=== PATIENT | male | born 1970 | race Caucasian/White ===

== ENCOUNTER 2019-06-08 11:32 | Emergency (ER) | payer SELFPAY ==
[~2019-06-08] VITALS: Ht 185.4 cm; Wt 90.7 kg
[2019-06-08 11:37] VITALS: BP_SYST 130
--- NOTE | 2019-06-08 11:44 | NUR ---
CHEL Shearer at bedside examining patient. Addendum: 06/08/19 at 1848 by [email or web address] wrong entry of time. [id number].
--- NOTE | 2019-06-08 12:04 | NUR ---
Placed in room 2. Placed on telemetry monitor, blood pressure machine and pulse oximeter. To gown for exam. Side rails up. Report given to Chantell GUDINO.
--- NOTE | 2019-06-08 12:06 | NUR ---
Pt brought by self, A&O x4 , pt presents to ER with chest tighness and L arm pain starting today, pt given aspirin on route, respirations even and unlabored, cap refill <3, VSS, no N/V noted at this time, will continue to monitor.
[2019-06-08 12:13] LABS: BASOPHILS # (AUTO) 0.1 K/uL (0.0-0.2); BASOPHILS % (AUTO) 0.4 % (0.0-2.0); EOSINOPHILS # (AUTO) 0.1 K/uL (0.0-0.4); EOSINOPHILS % (AUTO) 0.7 % (0.0-4.0); HEMATOCRIT 50.7 % (36-54); HEMOGLOBIN 17.2 g/dL (14.0-18.0); LYMPHOCYTES # (AUTO) 2.2 K/uL (1.0-5.5); LYMPHOCYTES % (AUTO) 15.4 % (20.5-51.5); MEAN CORPUSCULAR HEMOGLOBIN 31 pg (27-31); MEAN CORPUSCULAR HGB CONC 34 % (32-36); MEAN CORPUSCULAR VOLUME 92 fL (79.0-98.0); MONOCYTES # (AUTO) 0.8 K/uL (0.0-1.0); MONOCYTES % (AUTO) 5.8 % (1.7-9.3); NEUTROPHILS % (AUTO) 77.7 % (40.0-70.0); PLATELET COUNT (AUTO) 343 K/uL (130-430); RED BLOOD CELL COUNT(AUTO) 5.52 MIL/uL (4.2-6.2); RED CELL DISTRIBUTION WIDTH 13.6 % (9.0-15.0); WHITE BLOOD COUNT (AUTO) 14.1 K/uL (4.8-10.8)
[2019-06-08 12:25] LABS: INR 1.1 (0.80-1.20); PROTHROMBIN TIME 10.7 SECS (9.5-12.5)
[2019-06-08 13:03] LABS: CALCIUM 9.7 mg/dL (8.4-11.0); CREATININE 1.31 mg/dL (0.55-1.30); POTASSIUM 4.1 mmol/L (3.5-5.1)
[2019-06-08 13:08] LABS: ALBUMIN 4.1 g/dL (3.4-4.8); TOTAL BILIRUBIN 0.6 mg/dL (0.0-1.0)
[2019-06-08 13:30] VITALS: BP_SYST 130
--- NOTE | 2019-06-08 13:30 | NUR ---
Patient given written and verbal discharge instructions and verbalizes understanding. ER MD discussed with patient the results and treatment provided. Patient in stable condition. ID arm band removed. Opportunity for questions provided and answered. Medication side effect fact sheet provided. cleared to book.
== END 2019-06-08 13:30 | disposition home or self-care (01) ==
LOC: SED 11:32
DX: R07.89 Other chest pain (principal); Z88.0 Allergy status to penicillin; F17.200 Nicotine dependence, unspecified, uncomplicated; Z71.6 Tobacco abuse counseling
CPT/HCPCS: 36415; 71045; 80053; 84484; 85025; 85610-TC; 85730-TC; 93005; 99284

== ENCOUNTER 2022-03-14 22:48 | Inpatient (IN) | payer MEDICAID ==
[~2022-03-14] VITALS: Ht 154.9 cm; Wt 90.5 kg
--- NOTE | 2022-03-14 23:11 | NUR ---
Placed in room 5 . Placed on director of cardiac rehabilitation, blood pressure machine and pulse oximeter. To gown for exam. Side rails up. Report given to MARGIE GUDINO.
[2022-03-14 23:14] VITALS: BP_SYST 148
[2022-03-14] MEDS ORDERED: ALBUTEROL SULFATE 0.083% 2.5 MG/3 ML VIAL.NEB INH ONE (23:30)
[2022-03-14] MEDS ORDERED: IPRATROPIUM BROM 0.5 MG/2.5 ML VIAL.NEB (ATROVENT) INH ONE (23:30)
[2022-03-14] MEDS ORDERED: DEXAMETHASONE SOD PHOSPHATE 10 MG/ML VIAL IVP ONE (23:30)
[2022-03-15] VITALS (7 sets, daily range): BP systolic 112–139
[2022-03-15 00:28] LABS: BASOPHILS # (AUTO) 0.1 K/uL (0.0-0.2); BASOPHILS % (AUTO) 0.7 % (0.0-2.0); HEMOGLOBIN 15.6 g/dL (14.0-18.0); LYMPHOCYTES # (AUTO) 3.4 K/uL (1.0-5.5); RED CELL DISTRIBUTION WIDTH 13.6 % (9.0-15.0)
[2022-03-15 00:39] LABS: EOSINOPHILS # (AUTO) 0.4 K/uL (0.0-0.4); EOSINOPHILS % (AUTO) 2.8 % (0.0-4.0); HEMATOCRIT 44.8 % (36-54); LYMPHOCYTES % (AUTO) 25.4 % (20.5-51.5); MEAN CORPUSCULAR HEMOGLOBIN 31 pg (27-31); MEAN CORPUSCULAR HGB CONC 35 % (32-36); MEAN CORPUSCULAR VOLUME 88 fL (79.0-98.0); MONOCYTES # (AUTO) 1.3 K/uL (0.0-1.0); MONOCYTES % (AUTO) 9.4 % (1.7-9.3); NEUTROPHILS # (AUTO) 8.3 K/uL (1.8-7.7); NEUTROPHILS % (AUTO) 61.7 % (40.0-70.0); PLATELET COUNT (AUTO) 382 K/uL (130-430); RED BLOOD CELL COUNT(AUTO) 5.12 MIL/uL (4.2-6.2); WHITE BLOOD COUNT (AUTO) 13.5 K/uL (4.8-10.8)
--- NOTE | 2022-03-15 00:43 | NUR ---
Pt C/O SOB Breathing treatment given by RT Pt AOX4 VSS Able to make needs known Will continue to monitor
[2022-03-15 02:02] LABS: ANION GAP 11 (5-15); CALCIUM 9.5 mg/dL (8.4-11.0); CHLORIDE 101 mmol/L (98-107); CREATININE 1.29 mg/dL (0.55-1.30); GLUCOSE 104 mg/dL (70-99); POTASSIUM 4.1 mmol/L (3.5-5.1); SODIUM SERUM 138 mmol/L (136-145); UREA NITROGEN, BLOOD 18 mg/dL (8-21)
[2022-03-15 02:07] LABS: GFR AFRICAN AMERICAN 75 mL/min (>90)
[2022-03-15 02:11] LABS: ALANINE AMINOTRANSFERASE 47 U/L (12-78); ALBUMIN 3.7 g/dL (3.4-4.8); ASPARTATE AMINOTRANSFERASE 24 U/L (10-37); TOTAL BILIRUBIN 0.5 mg/dL (0.0-1.0)
--- NOTE | 2022-03-15 03:22 | NUR ---
Admit bed requested Patient will be admitted to care of Admitted to unit. Telemetry Diagnosis COPD, Respiratory failure Inpatient (Yes or No) Yes Observation (Yes or No) N Orientation concerns or request close to nursing station (Yes or No) N Covid Status Neg On vent or bipap No Isolation requirements No Needs a sitter No From Home (Yes or if No enter name of facility) home Requires Dialysis (Yes or No) No Med Rec Completed (Yes of No) Yes
--- NOTE | 2022-03-15 05:45 | NUR ---
Patient resting comfortably in bed Pt AOX4 VSS Able to make needs known Will continue to monitor
--- NOTE | 2022-03-15 06:05 | NUR ---
ADMISSION NOTE Received patient from ER via gurney. Patient admitted with diagnosis of COPD, RESPIRATORY FAILURE. Patient is awake, alert, oriented X4. Patient oriented to hospital room, call light, toileting, pain management and safety-teach back done. Patient informed that their room number is 109A Personal belongings checked and Belongings List documented. Call light within reach.
--- NOTE | 2022-03-15 06:13 | NUR ---
Patient will be admitted to [id number]. Belongings list completed. Complete and up to date summary report printed. SBAR report to be given to Maria G RN at bedside with opportunity for questions.
--- NOTE | 2022-03-15 06:15 | NUR ---
RECEIVED REPORT ON PATIENT FROM CHRISTINA EDUARDO RN, ASSUMED CARE, AND STARTED ASSESSMENT.
--- NOTE | 2022-03-15 06:17 | NUR ---
CONSULTATION PAGED/CALLED Reason for Consultation: COPD Person Who was Notified: ELIZABET Consulting Physician: YANELY Circuits Engineer Specialty: Ordering Physician: MILLER
--- NOTE | 2022-03-15 07:19 | NUR ---
REPORT GIVEN TO TERESE MILLER, AND CARE WAS TURNED OVER.
[2022-03-15] MEDS: IPRATROPIUM/ALBUTEROL SULFATE 3 ML AMPUL.NEB (DUONEB) INH SCH ×4 (09:15→20:31)
[2022-03-15] MEDS ORDERED: ENOXAPARIN SODIUM 40 MG/0.4 ML SYRINGE SUBCUT ONE (09:30)
[2022-03-15] MEDS ORDERED: predniSONE 20 MG TABLET PO ONE (09:30)
--- NOTE | 2022-03-15 19:01 | NUR ---
all needs mets. no s/s of distress, on 2 liters nasal cannula saturation good. no other concerned noted.
--- NOTE | 2022-03-15 19:15 | NUR ---
RECEIVED REPORT ON PATIENT FROM TERESE MENDOZA, ASSUMED CARE AND STARTED ASSESSMENT.
[2022-03-16] MEDS: IPRATROPIUM/ALBUTEROL SULFATE 3 ML AMPUL.NEB (DUONEB) INH SCH ×3 (07:12→15:27)
[2022-03-16 08:00] VITALS: BP_SYST 130
--- NOTE | 2022-03-16 08:00 | NUR ---
Initial notes sleepy, on O2 2L saturating at 97%, per patient he feels weak and have short of breath upon ambulating to the bathroom. Denies any pain. Call light within reach. Enc to call for help as needed.
[2022-03-16] MEDS ORDERED: ENOXAPARIN SODIUM 40 MG/0.4 ML SYRINGE SUBCUT SCH (09:00)
[2022-03-16] MEDS ORDERED: predniSONE 20 MG TABLET PO SCH (09:00)
[2022-03-16 09:03] LABS: ALBUMIN 3.4 g/dL (3.4-4.8); CALCIUM 9.2 mg/dL (8.4-11.0); CREATININE 1.2 mg/dL (0.55-1.30); POTASSIUM 4.2 mmol/L (3.5-5.1); TOTAL BILIRUBIN 0.2 mg/dL (0.0-1.0)
[2022-03-16 09:05] LABS: BASOPHILS # (AUTO) 0.1 K/uL (0.0-0.2); BASOPHILS % (AUTO) 0.3 % (0.0-2.0); EOSINOPHILS % (AUTO) 0.1 % (0.0-4.0); HEMOGLOBIN 15.1 g/dL (14.0-18.0); LYMPHOCYTES # (AUTO) 2.1 K/uL (1.0-5.5); MEAN CORPUSCULAR HEMOGLOBIN 30 pg (27-31); MEAN CORPUSCULAR HGB CONC 34 % (32-36); MEAN CORPUSCULAR VOLUME 88 fL (79.0-98.0); MONOCYTES # (AUTO) 1.3 K/uL (0.0-1.0); MONOCYTES % (AUTO) 7.6 % (1.7-9.3); NEUTROPHILS # (AUTO) 14.2 K/uL (1.8-7.7); PLATELET COUNT (AUTO) 398 K/uL (130-430); RED BLOOD CELL COUNT(AUTO) 5.01 MIL/uL (4.2-6.2); RED CELL DISTRIBUTION WIDTH 13.9 % (9.0-15.0); WHITE BLOOD COUNT (AUTO) 17.7 K/uL (4.8-10.8)
[2022-03-16] MEDS ORDERED: ALBMDI INH (10:17)
[2022-03-16] MEDS ORDERED: PRED20TA PO (10:17)
--- NOTE | 2022-03-16 10:31 | NUR ---
Notes O2 sat is 90-92 % in room air, Dr. Negron stated that patient can go be discharge.
[2022-03-16 11:21] VITALS: BP_SYST 130
--- NOTE | 2022-03-16 11:30 | NUR ---
Notes- Patient's aware of discharge. 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
[2022-03-16 12:13] VITALS: BP_SYST 114
--- NOTE | 2022-03-16 15:28 | NUR ---
Notes- Family will be picking up patient. Discharge instruction given and discussed with patient, verbalize understanding. IVL removed. 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
--- NOTE | 2022-03-16 17:30 | NUR ---
Patient ride is here. Discharge home, No distress. arm band and IVL removed.
== END 2022-03-16 17:35 | disposition home or self-care (01) | DRG 140 ==
LOC: SED 22:48 → STU 03-15 03:19
PROVIDERS: ADMIT Preventive Medicine Preventive Medicine/Occupational Environmental Medicine; ATTEND Preventive Medicine Preventive Medicine/Occupational Environmental Medicine
DX: J44.1 Chronic obstructive pulmonary disease with (acute) exacerbation (principal); J96.01 Acute respiratory failure with hypoxia; R65.11 Systemic inflammatory response syndrome (SIRS) of non-infectious origin with acute organ dysfunction; J45.901 Unspecified asthma with (acute) exacerbation; Z20.822 Contact with and (suspected) exposure to COVID-19; D72.829 Elevated white blood cell count, unspecified; Z79.01 Long term (current) use of anticoagulants; Z87.891 Personal history of nicotine dependence; Z79.899 Other long term (current) drug therapy; Z88.0 Allergy status to penicillin
CPT/HCPCS: 36415; 36600; 71045; 80053; 82803-TC; 83880; 84484; 85025; 93005; 94640; 96365; 96374; 99285; G0378; J1100; J1650; J1956; J7512; J7613

== ENCOUNTER 2022-04-23 19:44 | Emergency (ER) | payer MEDICAID ==
[~2022-04-23] VITALS: Ht 185.4 cm; Wt 108.9 kg
[~2022-04-23 19:44] MED LIST: ALBMDI INH; PRED20TA PO
[2022-04-23 20:07] VITALS: BP_SYST 133
--- NOTE | 2022-04-23 21:22 | NUR ---
Placed in room 2 . Placed on panel monitor, blood pressure machine and pulse oximeter. To gown for exam. Side rails up. Report given to SERVANDO GUDINO(CHARAN).
--- NOTE | 2022-04-23 21:41 | NUR ---
C/O SOB, PT STATES HE WAS ADMITTED TO HOSPITAL FOR SOB LAST WEEK AND WAS GIVEN A REFERAL TO A SPECIALIST HOWEVER HE HAS NOT BEEN ABLE TO MAKE CONTACT. HE ALSO RECIVED AN RX FOR ALBUTEROL AND RAN OUT OF HIS MEDICATION. PT SAT AT 93% ON RA. PROVIDED PT WITH NC 2L. NOW SAT AT 96%
[2022-04-23] MEDS ORDERED: predniSONE 20 MG TABLET PO ONE (22:15)
[2022-04-23] MEDS ORDERED: IPRATROPIUM BROM 0.5 MG/2.5 ML VIAL.NEB (ATROVENT) INH ONE (22:15)
[2022-04-23] MEDS ORDERED: ALBUTEROL SULFATE 0.083% 2.5 MG/3 ML VIAL.NEB INH ONE (22:15)
--- NOTE | 2022-04-23 22:26 | NUR ---
RT AT BEDSIDE, PT RECIVING BREATHING TX
[2022-04-23] MEDS ORDERED: IPRATROPIUM/ALBUTEROL SULFATE 3 ML AMPUL.NEB (DUONEB) INH ONE (23:30)
[2022-04-24 00:10] VITALS: BP_SYST 140
--- NOTE | 2022-04-24 00:12 | NUR ---
PT RESTING IN BED WITH EYES CLOSED, VISABLE RISE AND FALL OF CHEST. VSS
[2022-04-24] MEDS ORDERED: PRED20TA PO (00:21)
[2022-04-24] MEDS ORDERED: BUDE6.9H INH (00:21)
[2022-04-24] MEDS ORDERED: ZIT250 PO (00:21)
[2022-04-24] MEDS ORDERED: ALBU8.5H8 INH (00:21)
--- NOTE | 2022-04-24 00:40 | NUR ---
RT AT BEDSIDE
--- NOTE | 2022-04-24 00:51 | NUR ---
Patient given written and verbal discharge instructions and verbalizes understanding. ER MD discussed with patient the results and treatment provided. Patient in stable condition. ID arm band removed. Rx of PROAIR HFA, SYMBICORT 80-4.5, PREDNISONE, ZITHROMAX given. Patient educated on pain management and to follow up with PMD. Pain Scale 0/10. Opportunity for questions provided and answered. Medication side effect fact sheet provided.
== END 2022-04-24 00:50 | disposition home or self-care (01) ==
LOC: SED 19:44
DX: J44.1 Chronic obstructive pulmonary disease with (acute) exacerbation (principal); R06.02 Shortness of breath; R05.9 Cough, unspecified; Z88.0 Allergy status to penicillin; Z79.899 Other long term (current) drug therapy
CPT/HCPCS: 93005; 71045; 94640 ×2; 99285; J7512; J7613